=== PATIENT | female | born 1955 | race Caucasian/White ===

== ENCOUNTER 2017-08-30 07:30 | Emergency (ER) | payer OTHER ==
[~2017-08-30] VITALS: Ht 167.6 cm; Wt 92.2 kg
[2017-08-30] MEDS ORDERED: PERCOCET 5/31 TABLET PO (09:49)
[2017-08-30] MEDS ORDERED: MOTRIN600 MG PO (09:49)
[2017-08-30 10:43] VITALS: BP 110/74
== END 2017-08-30 10:46 | disposition home or self-care (01) ==
LOC: EME 07:30
PROC: 0RSJXZZ Reposition Right Shoulder Joint, External Approach (ICD-10-PCS; principal; 2017-08-30)
DX: S43.014A Anterior dislocation of right humerus, initial encounter (principal); S43.034A Inferior dislocation of right humerus, initial encounter; W01.0XXA Fall on same level from slipping, tripping and stumbling without subsequent striking against object, initial encounter; Y93.E9 Activity, other interior property and clothing maintenance; Y92.22 Religious institution as the place of occurrence of the external cause; Y99.0 Civilian activity done for income or pay; E11.9 Type 2 diabetes mellitus without complications; I10 Essential (primary) hypertension; E78.00 Pure hypercholesterolemia, unspecified
CPT/HCPCS: 73030; 99281; 99285; J7030

== ENCOUNTER 2017-10-21 02:53 | Emergency (ER) | payer OTHER ==
[~2017-10-21] VITALS: Ht 170.2 cm; Wt 90.2 kg
[~2017-10-21 02:53] MED LIST: MOTRIN600 MG PO; PERCOCET 5/31 TABLET PO
[2017-10-21 03:39] LABS: HEMATOCRIT 39.7 % (36.0-46.0); HEMOGLOBIN 14.1 G/DL (11.9-15.5); MCH 29.4 PG (29.0-34.0); MCHC 35.5 G/DL (30.0-36.0); MCV 82.9 FL (83-99); PLATELET COUNT 267 K/uL (156-360); RBC DIS.WIDTH-CV 11.8 % (11.8-14.6); RBC DIS.WIDTH-SD 35.7 % (39-53); RED BLOOD COUNT 4.79 M/uL (3.80-5.20); WHITE BLOOD COUNT 11.3 K/uL (4.1-10.2)
[2017-10-21 03:49] LABS: CHLORIDE 102 mEq/L (99-109); POTASSIUM 3.8 mEq/L (3.7-5.4)
[2017-10-21 03:50] LABS: SODIUM 138 mEq/L (136-147)
[2017-10-21 03:51] LABS: GLUCOSE 126 mg/dL (70-99)
[2017-10-21 03:55] LABS: CREATININE 0.6 mg/dL (0.6-1.3); GFR ESTIMATE (CALCULATED) > 59 mL/min/
[2017-10-21 03:56] LABS: UREA NITROGEN (BUN) 8 mg/dL (9-23)
[2017-10-21 04:00] LABS: TROP-I INTERPRETATION NEGATIVE; TROPONIN-I < 0.01 ng/mL (0.0-0.30)
[2017-10-21 05:08] VITALS: BP 139/78
== END 2017-10-21 05:20 | disposition home or self-care (01) ==
LOC: EME 02:53
PROVIDERS: Emergency Medicine
DX: E86.0 Dehydration (principal); I95.1 Orthostatic hypotension; E11.9 Type 2 diabetes mellitus without complications; E78.00 Pure hypercholesterolemia, unspecified; I10 Essential (primary) hypertension
CPT/HCPCS: 70450; 71046; 80048; 84484; 85027; 93005; 99281; 99284; J7030

== ENCOUNTER 2017-10-24 14:01 | Emergency (ER) | payer OTHER ==
[~2017-10-24] VITALS: Ht 162.6 cm; Wt 96.4 kg
[2017-10-24 16:11] VITALS: BP 152/89
== END 2017-10-24 16:12 | disposition home or self-care (01) ==
LOC: EME 14:01
DX: S16.1XXA Strain of muscle, fascia and tendon at neck level, initial encounter (principal); X58.XXXA Exposure to other specified factors, initial encounter; Y93.84 Activity, sleeping; Z87.891 Personal history of nicotine dependence
CPT/HCPCS: 99281; 99284